=== PATIENT | male | born 1955 | race Caucasian/White ===

== ENCOUNTER 2018-04-29 20:26 | Inpatient (IN) | payer MEDICAID, OTHER ==
[~2018-04-29] VITALS: Ht 180.3 cm; Wt 85.4 kg
[2018-04-29 20:32] VITALS: BP_SYST 152
[2018-04-29] MEDS ORDERED: ALBUTEROL SULFATE 0.083% 2.5 MG/3 ML VIAL.NEB INH ONE (21:00)
[2018-04-29 21:02] LABS: CALCIUM 8.8 mg/dL (8.4-11.0); CREATININE 1.24 mg/dL (0.55-1.30); POTASSIUM 3.7 mmol/L (3.5-5.1)
[2018-04-29 21:04] LABS: EOSINOPHILS # (AUTO) 0.3 K/uL (0.0-0.4); MEAN CORPUSCULAR HEMOGLOBIN 31 pg (27-31); MEAN CORPUSCULAR VOLUME 89 fL (79.0-98.0); MONOCYTES # (AUTO) 0.6 K/uL (0.0-1.0); PLATELET COUNT (AUTO) 193 K/uL (130-430)
[2018-04-29 21:07] LABS: ALBUMIN 3.6 g/dL (3.4-4.8); TOTAL BILIRUBIN 1.1 mg/dL (0.0-1.0)
[2018-04-29 21:10] LABS: BASOPHILS # (AUTO) 0.1 K/uL (0.0-0.2); BASOPHILS % (AUTO) 1.1 % (0.0-2.0); EOSINOPHILS % (AUTO) 3.7 % (0.0-4.0); HEMATOCRIT 48.3 % (36-54); HEMOGLOBIN 16.7 g/dL (14.0-18.0); LYMPHOCYTES % (AUTO) 29.9 % (20.5-51.5); MEAN CORPUSCULAR HGB CONC 35 % (32-36); MONOCYTES % (AUTO) 8.4 % (1.7-9.3); NEUTROPHILS # (AUTO) 3.8 K/uL (1.8-7.7); NEUTROPHILS % (AUTO) 56.9 % (40.0-70.0); RED BLOOD CELL COUNT(AUTO) 5.45 MIL/uL (4.2-6.2); RED CELL DISTRIBUTION WIDTH 12.9 % (9.0-15.0); WHITE BLOOD COUNT (AUTO) 6.8 K/uL (4.8-10.8)
[2018-04-29] MEDS ORDERED: FUROSEMIDE 40 MG/4 ML VIAL IVP ONE (21:30)
[2018-04-29] MEDS ORDERED: CARV6.2554 PO (21:34)
[2018-04-29] MEDS ORDERED: FURO-150 PO (21:34)
[2018-04-29] MEDS ORDERED: LISI-600 PO (21:35)
[2018-04-29 22:40] LABS: BILIRUBIN,URINE NEGATIVE (NEGATIVE); BLOOD, URINE NEGATIVE (NEGATIVE); CLARITY/URINE CLEAR (CLEAR); COLOR,URINE YELLOW (YELLOW); GLUCOSE,URINE NEGATIVE (NEGATIVE); KETONES,URINE NEGATIVE (NEGATIVE); LEUKOCYTE ESTERASE ,URINE NEGATIVE (NEGATIVE); NITRITE, URINE NEGATIVE (NEGATIVE); PROTEIN URINE NEGATIVE (NEGATIVE)
[2018-04-29 22:51] VITALS: BP_SYST 153
[2018-04-29] MEDS ORDERED: cloNIDine HCL 0.1 MG TABLET PO PRN (23:15)
[2018-04-29] MEDS ORDERED: NITROGLYCERIN 0.4 MG TAB.SUBL SL PRN (23:15)
[2018-04-29] MEDS ORDERED: IPRATROPIUM/ALBUTEROL SULFATE 3 ML AMPUL.NEB INH PRN (23:15)
[2018-04-29] MEDS ORDERED: LISINOPRIL 20 MG TABLET PO SCH (23:30)
[2018-04-29] MEDS ORDERED: ENOXAPARIN SODIUM 40 MG/0.4 ML SYRINGE SUBCUT ONE (23:30)
[2018-04-29] MEDS ORDERED: CARVEDILOL 6.25 MG TABLET (COREG) PO SCH (23:30)
[2018-04-29] MEDS ORDERED: POTASSIUM CHLORIDE 20 MEQ TAB.PRT.SR PO ONE (23:45)
[2018-04-29 23:53] VITALS: BP_SYST 139
[2018-04-30] VITALS (7 sets, daily range): BP systolic 98–118
[2018-04-30 00:20] LABS: METHAMPHETAMINES SCREEN,URINE POSITIVE (NEG <=500); URINE AMPHETAMINE POSITIVE (NEG <=500)
[2018-04-30 00:21] LABS: BARBITURATE, URINE NEGATIVE (NEG <=200); BENZODIAZEPINE, URINE NEGATIVE (NEG <=150); CANNABINOID, URINE NEGATIVE (NEG <=50); COCAINE, URINE NEGATIVE (NEG <=150); OPIATE, URINE NEGATIVE (NEG <=100); PHENCYCLIDINE SCREEN,URINE NEGATIVE (NEG <=25); UR TRICYCLIC ANTIDEPRESSANTS NEGATIVE (NEG <=300); URINE METHADONE NEGATIVE (NEG <=200); URINE OXYCODONE SCREEN NEGATIVE (NEG <=100); URINE PROPOXYPHENE SCREEN NEGATIVE (NEG <=300)
[2018-04-30 07:00] LABS: BASOPHILS % (AUTO) 0.3 % (0.0-2.0); EOSINOPHILS # (AUTO) 0.2 K/uL (0.0-0.4); EOSINOPHILS % (AUTO) 2.9 % (0.0-4.0); HEMATOCRIT 47.2 % (36-54); HEMOGLOBIN 15.9 g/dL (14.0-18.0); LYMPHOCYTES # (AUTO) 2.3 K/uL (1.0-5.5); LYMPHOCYTES % (AUTO) 30.8 % (20.5-51.5); MEAN CORPUSCULAR HEMOGLOBIN 30 pg (27-31); MEAN CORPUSCULAR HGB CONC 34 % (32-36); MEAN CORPUSCULAR VOLUME 90 fL (79.0-98.0); MONOCYTES # (AUTO) 0.6 K/uL (0.0-1.0); MONOCYTES % (AUTO) 8.6 % (1.7-9.3); NEUTROPHILS # (AUTO) 4.3 K/uL (1.8-7.7); NEUTROPHILS % (AUTO) 57.4 % (40.0-70.0); PLATELET COUNT (AUTO) 173 K/uL (130-430); RED BLOOD CELL COUNT(AUTO) 5.28 MIL/uL (4.2-6.2); RED CELL DISTRIBUTION WIDTH 13.1 % (9.0-15.0); WHITE BLOOD COUNT (AUTO) 7.4 K/uL (4.8-10.8)
[2018-04-30 07:12] LABS: PROTHROMBIN TIME 10.5 SECS (9.5-12.5)
[2018-04-30 07:22] LABS: FREE T4 (FREE THYROXINE) 0.8 ng/dL (0.6-1.6); THYROID STIMULATING HORMONE 2.7 uIu/mL (0.34-4.82)
[2018-04-30 07:53] LABS: CALCIUM 8.8 mg/dL (8.4-11.0); CREATININE 1.07 mg/dL (0.55-1.30)
[2018-04-30] MEDS ORDERED: POTASSIUM CHLORIDE 10 MEQ TAB.PRT.SR PO SCH (09:00)
[2018-04-30] MEDS ORDERED: FUROSEMIDE 20 MG/2 ML VIAL IVP SCH (09:00)
[2018-04-30] MEDS ORDERED: FUROSEMIDE 20 MG TABLET PO SCH (09:00)
[2018-04-30] MEDS: CARVEDILOL 6.25 MG TABLET (COREG) PO SCH ×2 (10:01→21:00)
[2018-04-30] MEDS ORDERED: LISINOPRIL 20 MG TABLET PO ONE (10:30)
[2018-04-30] MEDS ORDERED: ENOXAPARIN SODIUM 40 MG/0.4 ML SYRINGE SUBCUT SCH (21:00)
[2018-05-01 00:56] VITALS: BP_SYST 109
[2018-05-01 07:19] LABS: HEMATOCRIT 47.5 % (36-54); HEMOGLOBIN 15.9 g/dL (14.0-18.0); MEAN CORPUSCULAR HEMOGLOBIN 30 pg (27-31); MEAN CORPUSCULAR HGB CONC 34 % (32-36); MEAN CORPUSCULAR VOLUME 89 fL (79.0-98.0); PLATELET COUNT (AUTO) 173 K/uL (130-430); RED BLOOD CELL COUNT(AUTO) 5.31 MIL/uL (4.2-6.2); RED CELL DISTRIBUTION WIDTH 12.9 % (9.0-15.0); WHITE BLOOD COUNT (AUTO) 8.5 K/uL (4.8-10.8)
[2018-05-01 07:28] LABS: CALCIUM 8.5 mg/dL (8.4-11.0); CREATININE 0.84 mg/dL (0.55-1.30); POTASSIUM 3.9 mmol/L (3.5-5.1)
[2018-05-01 07:41] LABS: AFP, TUMOR MARKER 7.5 ng/mL (0.0-8.3)
[2018-05-01 08:11] LABS: THYROID STIMULATING HORMONE 2.82 uIu/mL (0.36-3.74)
[2018-05-01 08:13] LABS: HEPATITIS A AB, IgM Negative (Negative); HEPATITIS B CORE AB, IgM Negative (Negative); HEPATITIS B SURFACE AG Negative (Negative)
[2018-05-01 08:14] VITALS: BP_SYST 114
[2018-05-01] MEDS: CARVEDILOL 6.25 MG TABLET (COREG) PO SCH (08:56)
[2018-05-01] MEDS ORDERED: LISINOPRIL 20 MG TABLET PO SCH ×2 (09:00)
[2018-05-01 11:12] LABS: BAND % (MANUAL) 0 % (0-6); LYMPHOCYTES % (MANUAL) 38 % (20-46)
[2018-05-01 11:13] LABS: BASOPHILS % (MANUAL) 0 % (0-2); EOSINOPHILS % (MANUAL) 7 % (0-7); MONOCYTES % (MANUAL) 6 % (0-11)
[2018-05-01 12:35] VITALS: BP_SYST 95
[2018-05-01] MEDS ORDERED: CARV6.2554 PO (13:11)
[2018-05-01] MEDS ORDERED: LISI-209 PO (13:11)
[2018-05-01 13:13] VITALS: BP_SYST 95
== END 2018-05-01 14:25 | disposition home or self-care (01) | DRG 194 ==
LOC: SED 20:26 → STU 22:27
PROVIDERS: ADMIT Internal Medicine; ATTEND Internal Medicine
DX: I11.0 Hypertensive heart disease with heart failure (principal); I42.0 Dilated cardiomyopathy; K74.60 Unspecified cirrhosis of liver; F15.10 Other stimulant abuse, uncomplicated; I50.43 Acute on chronic combined systolic (congestive) and diastolic (congestive) heart failure; B19.20 Unspecified viral hepatitis C without hepatic coma; K59.00 Constipation, unspecified; I34.0 Nonrheumatic mitral (valve) insufficiency; I42.7 Cardiomyopathy due to drug and external agent; T43.625A Adverse effect of amphetamines, initial encounter; Y92.89 Other specified places as the place of occurrence of the external cause; Z91.14 Patient's other noncompliance with medication regimen; Z79.899 Other long term (current) drug therapy
CPT/HCPCS: 36415; 71045; 80048; 80053; 80061; 80074; 80307; 81003; 82105; 83735-TC; 83880; 84439; 84443-TC; 84484; 85007; 85025; 85027; 85610-TC; 93005; 93306; 94640; 96374; 99285; J1650; J1940; J7613